=== PATIENT | female | born 1990 | race Caucasian/White ===

== ENCOUNTER → 2016-08-02 | Outpatient (CLI) | payer OTHER ==
--- NOTE | 2016-08-02 13:08 | MAMMOGRAPHY REPORT ---
ULTRASOUND OF LEFT BREAST: 08/02/2016 CLINICAL HISTORY: The patient reports a palpable lump in her left breast for approximately 6 months, without any noticeable chemical cell changer that time. 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 She reports a mother with a history of breast cancer diagnosed at age 51-52 . COMPARISON: No prior exams were available for comparison. TECHNIQUE: Real-time targeted ultrasound of the left breast was performed. FINDINGS: Real-time, high resolution targeted ultrasound was performed of the area of the palpable lump pointed out by the patient, in the left breast at 2:00 approximately 4 cm from the nipple. At the site of the palpable lump there is an oval hypoechoic mass which measures 7 x 4 x 10 mm. The ma rgins are not completely circumscribed. Although this may represent a fibroadenoma given the histor y of prior fibroadenomas, it is indeterminant given the palpable nature and non-circumscribed margin s and ultrasound-guided core needle biopsy is recommended. IMPRESSION: ACR BI-RADS CATEGORY 4: SUSPICIOUS - FOLLOW-UP RECOMMENDED Hypoechoic 10 mm mass in the left breast at 2:00, at the site of the palpable lump pointed out by th e patient. The mass is indeterminant and ultrasound guided core needle biopsy is recommended for fu rther evaluation. This may represent a fibroadenoma. A phone call was made to the physician's office to confirm faxed results were received. The patient was verbally notified of the results. She tentatively scheduled the biopsy before leaving the depa rtment. Nydia Peterson M.D. /:08/02/2016 09:08:10 Rockboard Lather: Jyoti ACSEY(Chelly)([place]), [facility] letter sent: Abnormal 4/5 BI-RADS Code: ACR BI-RADS Category 4: Suspicious
== END | disposition home or self-care (01) ==
LOC: C.MAMM 08:37
PROVIDERS: ATTEND Nurse Practitioner Obstetrics & Gynecology
DX: N63 Unspecified lump in breast (principal); Z80.3 Family history of malignant neoplasm of breast

== ENCOUNTER → 2016-08-17 | Outpatient (CLI) | payer OTHER ==
--- NOTE | 2016-08-17 14:23 | Discharge Instructions ---
Discharge Instructions Procedure Procedure Date: Aug 17, 2016. Reason for visit: Left Mass. Discharge Discharge Date: Aug 17, 2016. Discharge Diagnosis: status post breast biopsy Instructions Activity Recommendations: Additional Limitations (see below) Return to School/Work: no limitations Recommended Home Diet: No Limitations Provider Instructions: ACTIVITY RECOMMENDATIONS: * No lifting, pushing, pulling or exercising the affected side for three days. RETURN TO SCHOOL/WORK: * You may return to work/school after the procedure, but do not perform any strenuous activities for 24 to 48 hours. MEDICATIONS: * Tylenol (two 325 mg) every four to six hours if needed for mild pain (if not allergic to Tylenol). DIET: * Resume previous diet. SPECIAL CARE INSTRUCTIONS: * Keep biopsy site dry for 24 hours. May shower after 24 hours, but do not soak (bathe) incision. * May remove Tegaderm (plastic patch) tomorrow AFTER showering. * Leave the steri-strips on for one week. Allow the steri-strips to fall off by themselves. If not off after one week, you may remove them. You may place a Bandaid crosswise over the strips, if desired. * Apply ice 10 minutes on and 10 minutes off as needed. * Wear a bra at bedtime to sleep more comfortably for 2-3 days. * Your referring physician should have the results after approximately 5 to 7 business days. * Call for unusual bleeding, fever, drainage, etc or if you have any questions call during normal business hours or after hours call Dr Peterson, . FOLLOW UP VISIT: Follow-up with Referring Physician as scheduled. Kristin Gomez Recommendations: Call your doctor if: * Temperature above 101 degrees * Pain not relieved by pain medicine ordered * There is increased drainage or redness from any incision * You have any unanswered questions or concerns. Your Doctors Instructions noted above were prepared by provider Nydia Peterson. Patient Signature Section: Patient Instructions Signature Page Duyen Garcia Patient (or Guardian) Signature/Date: I have read and understand the instructions given to me by my caregivers. Caregiver/RN/Doctor Signature/Date: The above-named patient and/or guardian has received patient instructions on this date. + Original Patient Signature Page (only) stays with chart. Please make copy for patient.
--- NOTE | 2016-08-20 13:17 | MAMMOGRAPHY REPORT ---
THIS REPORT HAS BEEN AMENDED. AMENDMENT: 08/29/2016 Nydia Peterson M.D. Pathology from ultrasound-guided biopsy of a left 2:00 breast mass was reviewed on 08/29/2016. 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 Recommend follow -up ultrasound of the left breast mass in 6 months to confirm stability. ULTRASOUND GUIDED BIOPSY LEFT BREAST: 08/17/2016 CLINICAL HISTORY: Left 2:00 breast mass. PATIENT CONSENT: The procedure, risks and benefits were discussed with the patient and informed writt en consent was obtained. A timeout was performed immediately prior to the procedure. PROCEDURE DESCRIPTION: With ultrasound guidance, aseptic technique, and lidocaine as the local anesth etic (1% lidocaine to anesthetize the skin and 1% lidocaine with epinephrine to anesthetize the deepe r tissues), the mass of concern in the left 2:00 breast was sampled 3 times with a 14-gauge Achieve b iopsy needle. Immediately thereafter, with ultrasound guidance, aseptic technique, and lidocaine as the local anesthetic, a metallic localizer clip was placed into the mass. Direct pressure was applie d to the site immediately post procedure and hemostasis was achieved. The patient tolerated the proc edure without complication. She was given wound care instructions. The specimens were sent to [facility] for analysis. COMPARISON: Comparison is made to exam dated: 08/02/2016 ultrasound - [facility]. IMPRESSION: ULTRASOUND GUIDED BIOPSY Ultrasound guided core needle biopsy of the left 2:00 breast mass, with clip placement. The patient will receive pathology results from her referring provider. Nydia Peterson M.D. ah/:08/17/2016 14:24:35 Bake Room Worker: Eren CASEY(Chelly)([place]), [facility]
== END | disposition home or self-care (01) ==
LOC: C.MAMM 13:59
PROVIDERS: ATTEND Nurse Practitioner Obstetrics & Gynecology
DX: D24.2 Benign neoplasm of left breast (principal)